=== PATIENT | female | born 1930 | race Caucasian/White ===

== ENCOUNTER 2019-04-21 10:55 | Observation (INO) | payer OTHER ==
[~2019-04-21] VITALS: Ht 157.5 cm; Wt 60.0 kg
[~2019-04-21 10:55] MED LIST: ALDACTONE25 MG PO; ASPIR 8181 MG PO; ASPIR-TRIN325 MG PO; ATORVASTATIN CA20 MG PO; BYSTOLIC5 MG PO; CLARITIN10 M2 PO; CLONIDINE HCL0.2 MG PO; CLOPIDOGREL75 MG PO; CRESTOR10 MG PO; GLUCOPHAGE500 MG PO; HEADACHE RELIE1 EAC4; ISOSORBIDE MONO20 MG PO; METFORMIN HCL500 MG PO; METOPROLOL TART25 MG PO; MULTIVITAMINS1 EAC7; NIFEDICAL XL30 MG PO; NITROSTAT0.4 MG SL; PHILLIPS'400 MG/5 M PO; RAMIPRIL5 MG PO; TEMAZEPAM15 MG PO; TESSALON PERLE100 MG PO; Z.0.AMLODIPINE BESY1 PO; Z.0.CLONIDINE HCL0.1 PO; Z.0.ISOSORBIDE MONO6 PO; Z.0.LOSARTAN-HCTZ1 E PO; Z.0.METOPROLOL TART2 PO; Z.0.PLAVIX75 MG PO; Z.0.RANEXA500 MG PO; Z.0.SIMVASTATIN40 MG PO; Z.0.ZOLPIDEM TARTRA1 PO
[2019-04-21] MEDS ORDERED: HYDRALAZINE HCL 20 MG/ML VIAL IV STA (11:21)
[2019-04-21 12:18] LABS: BASOPHILS % 0.3 % (0.0-1.0); EOSINOPHILS % 0.4 % (0.0-6.0); HEMATOCRIT 38.6 % (34.2-44.1); HEMOGLOBIN 12.7 g/dL (12.0-16.0); LYMPHOCYTES # (AUTO) 1.4 (1.0-3.2); LYMPHOCYTES % 18.1 % (18.0-39.1); MEAN CORPUSCULAR HEMOGLOBIN 31.4 pg (28-32); MEAN CORPUSCULAR HGB CONC 32.9 g/dL (31-35); MEAN CORPUSCULAR VOLUME 95.5 fL (81-99); MONOCYTES # (AUTO) 0.6 (0.2-0.8); MONOCYTES % 7.4 % (4.4-11.3); NEUTROPHILS # (AUTO) 5.6 (2.1-6.9); NEUTROPHILS % 73.3 % (38.7-80.0); PLATELET COUNT 212 x10e3/uL (140-360); RED BLOOD COUNT 4.04 x10e6/uL (3.6-5.1); RED CELL DISTRIBUTION WIDTH 12.8 % (11.7-14.4)
--- NOTE | 2019-04-21 12:28 | Diagnostic Imaging Report ---
EXAMINATION: CHEST SINGLE (PORTABLE) INDICATION: Shortness of breath COMPARISON: None FINDINGS: LINES/TUBES:EKG leads overlie the chest. LUNGS:The lungs are mildly hyperinflated. No focal consolidation or pulmonary edema. Subcentimeter right midlung to a granuloma. PLEURA:No pleural effusion or pneumothorax. MEDIASTINUM:The cardiomediastinal silhouette appears normal in size and shape. Atherosclerotic calcifications of the thoracic aorta. BONES/SOFT TISSUES:No acute osseous injury. ABDOMEN:No free air under the diaphragm. IMPRESSION: No focal pneumonia or pulmonary edema. Signed by: Jermaine Hill MD on 04/21/2019 12:25 PM
[2019-04-21 12:29] LABS: INR 0.88; PARTIAL THROMBOPLASTIN TIME 25.8 seconds (23.8-35.5); PROTHROMBIN TIME 12.4 seconds (11.9-14.5)
[2019-04-21 12:36] LABS: ALBUMIN 3.9 g/dL (3.5-5.0); ALBUMIN/GLOBULIN RATIO 1.3 (0.8-2.0); ANION GAP 13.3 mmol/L (8-16); CALCIUM 9.8 mg/dL (8.4-10.2); CREATININE, SERUM 1.38 mg/dL (0.57-1.11); POTASSIUM 4.3 mmol/L (3.5-5.1)
[2019-04-21 12:43] LABS: CREATINE KINASE MB 1.3 ng/mL (0-5.0)
[2019-04-21] MEDS ORDERED: HYDRALAZINE HCL 20 MG/ML VIAL ONE (14:38)
[2019-04-21 16:17] LABS: BILIRUBIN,URINE NEGATIVE (NEGATIVE); CLARITY,URINE SL CLOUDY (CLEAR); COLOR,URINE YELLOW (YELLOW); KETONES,URINE NEGATIVE (NEGATIVE); LEUKOCYTE ESTERASE ,URINE NEGATIVE (NEGATIVE); NITRITE,URINE NEGATIVE (NEGATIVE); PROTEIN,URINE DIPSTICK NEGATIVE (NEGATIVE); URINE UROBILINOGEN 0.2 mg/dL (0.2 - 1)
[2019-04-21 16:31] LABS: BACTERIA,URINE FEW /HPF; EPITHELIAL CELLS,URINE RARE /LPF
[2019-04-21] MEDS ORDERED: SODIUM CHLORIDE 0.9% 1000ML 1,000 ML IV SCH (16:48)
[2019-04-21] MEDS ORDERED: ONDANSETRON HCL INJ 2MG/ML 2ML 2 MG/ML VIAL IV PRN (17:00)
[2019-04-21] MEDS ORDERED: ASPIRIN 81 MG CHEW TAB PO ONE (17:00)
--- OUTSIDE RECORDS SUMMARY | 2019-04-21 17:26 | XMS REPORT ---
Author Author [facility] Address Unknown Phone Unavailable Care Team Providers Care Keg Washer Name Role Phone Mery QUINONEZ Unavailable Unavailable Problems This patient has no known problems. Allergies, Adverse Reactions, Alerts This patient has no known allergies or adverse reactions. Medications This patient has no known medications. Results Test Description Test Time Test Comments Text Results Atomic Results Result Comments CHEST SINGLE (PORTABLE) 2019-04-21 12:23:00 [place] [id number] Patient Name: LUIZ SUN MR #: [id number] : 1930 Age/Sex: 88/F Req #: [id number] Adm Physician: Ordered by: STEPHANIE LUCERO [employer] OPERATOR HELPER Report #: [id number] Location: ER Room/Bed: Procedure: [id number] DX/CHEST SINGLE (PORTABLE) Exam Date: 04/21/19 Exam Time: 1140 REPORT STATUS: Signed EXAMINATION: CHEST SINGLE (PORTABLE) JUAN CATION: Shortness of breath COMPARISON: None FINDINGS: LINES/TUBES:EKG leads overlie the chest. LUNGS:The lungs are mildly hyperinflated. No focal consolidation or pulmonary edema. Subcentimeter right midlung to a granuloma. PLEURA:No pleural effusion or pneumothorax. MEDIASTINUM:The cardiomediastinal silhouette appears normal in size and shape. Atherosclerotic calcifications of the thoracic aorta. BONES/SOFT TISSUES:No acute osseous injury. ABDOMEN:No free air under the diaphragm. IMPRESSION: No focal pneumonia or pulmonary edema. Signed by: Link Luz MD on 04/21/2019 12:25 PM Dictated By: LINK LUZ MD 1225 Transcribed By: MITA on 04/21/19 1225 COPY TO: STEPHANIE LUCERO NP
[2019-04-21] MEDS ORDERED: ACETAMINOPHEN 325 MG TAB PO PRN (18:30)
[2019-04-21 18:43] VITALS: BP 187/79
[2019-04-21] MEDS ORDERED: DEXTROSE 50% SYRINGE 50 ML IV PRN (19:00)
[2019-04-21] MEDS ORDERED: TRAZODONE HCL50 MG PO (19:50)
--- NOTE | 2019-04-21 19:55 | NUR ---
RECEIVED PT IN BED AOX3 RESPIRATIONS ARE EVEN AND UNLABORED DENIES CHEST PAIN .SKIN WARM AND DRY TO TOUCH .PHYSICAL ASSESSMENT DONE FAMILY AT THE BEDSIDE .CALL LIGHT WITH IN REACH CONTINUE TO MONITOR
[2019-04-21] MEDS ORDERED: CLONIDINE HCL0.1 MG PO (19:58)
[2019-04-21] MEDS ORDERED: CLONIDINE HCL0.2 MG (19:58)
[2019-04-21] MEDS ORDERED: CLONIDINE HCL 0.2 MG TAB PO PRN (20:45)
[2019-04-21] MEDS: INSULIN LISPRO 100 UNIT/1 ML 3ML VIAL SQ SCH (21:00)
[2019-04-21] MEDS ORDERED: ATORVASTATIN 20 MG TAB PO SCH (21:00)
[2019-04-21] MEDS: ISOSORBIDE MONONITRATE 30 MG TAB CR PO SCH (21:33)
[2019-04-21] MEDS: TRAZODONE HCL 50 MG TAB PO SCH (21:34)
[2019-04-21] MEDS: METOPROLOL TARTRATE 25 MG TAB PO SCH (21:34)
[2019-04-21] MEDS: TEMAZEPAM 15 MG CAP PO SCH (21:34)
[2019-04-21 21:41] LABS: CREATINE KINASE MB 1.7 ng/mL (0-5.0)
[2019-04-21] MEDS: CLONIDINE HCL 0.1 MG TAB PO SCH (21:46)
[2019-04-22] VITALS (10 sets, daily range): BP systolic 142–164; BP diastolic 60–68
[2019-04-22] MEDS ORDERED: HYDRALAZINE HCL 25 MG TAB PO PRN (00:15)
[2019-04-22 01:52] LABS: CREATINE KINASE 61 IU/L (29-168)
[2019-04-22 05:33] LABS: BASOPHILS % 0.6 % (0.0-1.0); EOSINOPHILS # (AUTO) 0.1 (0.0-0.4); HEMATOCRIT 34.5 % (34.2-44.1); HEMOGLOBIN 11.4 g/dL (12.0-16.0); LYMPHOCYTES # (AUTO) 1.9 (1.0-3.2); LYMPHOCYTES % 27.4 % (18.0-39.1); MEAN CORPUSCULAR HEMOGLOBIN 31.6 pg (28-32); MEAN CORPUSCULAR VOLUME 95.6 fL (81-99); MONOCYTES # (AUTO) 0.7 (0.2-0.8); MONOCYTES % 10.7 % (4.4-11.3); NEUTROPHILS # (AUTO) 4.1 (2.1-6.9); PLATELET COUNT 186 x10e3/uL (140-360); RED BLOOD COUNT 3.61 x10e6/uL (3.6-5.1)
[2019-04-22 05:50] LABS: ANION GAP 9.9 mmol/L (8-16); CREATININE, SERUM 1.17 mg/dL (0.57-1.11); POTASSIUM 3.9 mmol/L (3.5-5.1)
[2019-04-22] MEDS: RAMIPRIL 5 MG CAP PO SCH ×2 (06:00→09:00)
[2019-04-22] MEDS ORDERED: NIFEDIPINE CR 30 MG TAB PO SCH ×2 (06:00→09:00)
[2019-04-22 06:15] LABS: CREATINE KINASE MB 1.4 ng/mL (0-5.0)
--- NOTE | 2019-04-22 06:36 | Diagnostic Imaging Report ---
EXAM: CHEST SINGLE (PORTABLE), AP Portable DATE: 04/22/2019 7:00 AM INDICATION: Chest pain. COMPARISON: AP view of the chest April 21, 2019. FINDINGS: LINES/TUBES: None LUNGS: Bilateral hyperinflation. No consolidations or edema. PLEURA: No effusions or pneumothorax. HEART AND MEDIASTINUM: The cardiac silhouette is mildly enlarged. Calcifications of aortic arch again observed. BONES AND SOFT TISSUES: No acute findings. IMPRESSION: Cardiomegaly without acute decompensation. Signed by: Dr. Perry Ceballos M.D. on 04/22/2019 6:33 AM
--- NOTE | 2019-04-22 07:15 | NUR ---
PATIENT IN BED RESTING WITH NO RESPIRATORY DISTRESS. DENIED PAIN OR DISCOMFORT AT THIS TIME. TELEMETRY BOX [address] BED IN LOWER POSITION, CALL LIGHT AT REACH.
--- NOTE | 2019-04-22 07:22 | NUR ---
PT RESTING .DENIES CHEST PAIN .PT HAS HR GOING FROM48 Addendum: 04/22/19 at 0724 by Jose Harrison RN WRONG
--- NOTE | 2019-04-22 07:24 | NUR ---
PT RESTING PT HAS LOW HR GOING FROM 45-52 .DENIES CHEST PAIN .CALL LIGHTWITH IN REACH BEDSIDE REPORT GIVENTO THE ONCOMING NURSE
[2019-04-22] MEDS: INSULIN LISPRO 100 UNIT/1 ML 3ML VIAL SQ SCH ×4 (08:00→21:00)
[2019-04-22] MEDS ORDERED: METFORMIN HCL 500 MG TAB PO SCH (08:00)
[2019-04-22] MEDS: NIFEDIPINE CR 30 MG TAB PO SCH (09:00)
[2019-04-22] MEDS ORDERED: ISOSORBIDE MONONITRATE 20 MG TAB PO SCH (09:00)
[2019-04-22] MEDS ORDERED: CLOPIDOGREL BISULFATE 75 MG TAB PO SCH (09:00)
[2019-04-22] MEDS ORDERED: ASPIRIN 81 MG CHEW TAB PO SCH (09:00)
[2019-04-22] MEDS: METOPROLOL TARTRATE 25 MG TAB PO SCH ×3 (09:00→21:00)
[2019-04-22] MEDS ORDERED: RAMIPRIL 5 MG CAP PO SCH (09:00)
[2019-04-22] MEDS: CLONIDINE HCL 0.1 MG TAB PO SCH ×2 (09:21→17:54)
[2019-04-22] MEDS: MULTIVITAMINS/MINERALS TAB PO SCH (09:40)
[2019-04-22] MEDS: ISOSORBIDE MONONITRATE 30 MG TAB CR PO SCH ×2 (09:40→20:27)
--- NOTE | 2019-04-22 11:23 | NUR ---
SPOKE WITH MD REGARDING PROCEDURE TOMORROW. ORDER RECEIVED TO GIVE PLAVIX AND ASPIRIN TODAY AND HOLD FOR TOMORROW. PATIENT NOTIFIED OF PLAN OF CARE.
--- NOTE | 2019-04-22 15:00 | NUR ---
PATIENT AMBULATED IN THE ROOM WITH PHYSICAL THERAPY, NO COMPLAIN VOICED. BACK IN BED WITH CALL LIGHT AT REACH.
--- NOTE | 2019-04-22 15:36 | Consultation ---
DATE OF CONSULTATION: Cardiology Consultation CHIEF COMPLAINT: The patient is an 88-year-old with chest pain, shortness of breath. HISTORY OF PRESENT ILLNESS: The patient is an 88-year-old, who has been having worsening shortness of breath and exertion for the last week. The patient then experienced chest discomfort similar in nature to her previous angina and came to the emergency room at the [facility]. The patient was subsequently admitted for observation. The patient has had no nausea, no vomiting, no abdominal pain. PAST MEDICAL HISTORY: Significant for: 1. Coronary artery disease. 2. Previous intracoronary stent placement about 10 years ago. 3. Hypertension. 4. Hyperlipidemia. 5. Diabetes mellitus. MEDICATIONS: At home include: 1. Atorvastatin. 2. Clonidine. 3. Clopidogrel. 4. Isosorbide. 5. Metformin. 6. Metoprolol. 7. Nifedipine. 8. Ramipril. SOCIAL HISTORY: The patient does not drink and does not smoke. The patient lives independently. FAMILY HISTORY: There is a known family history of coronary artery disease. PHYSICAL EXAMINATION: GENERAL: The patient is an older female, in no obvious distress. VITAL SIGNS: Include a temperature of 96.6, pulse was 50, blood pressure 142/60. HEAD EARS, EYES, NOSE, AND THROAT: The patient's cranium was normocephalic and atraumatic. Extraocular muscles were intact. Sclerae were anicteric. Pupils were equal, round, reactive to light. There was no pallor or cyanosis of the oral mucosa. There was no erythema or edema of the throat. NECK: Supple. No jugular venous distention. CHEST: Demonstrated rhonchi bilaterally. CARDIAC: Demonstrated normal S1 and S2 with a short 2/6 systolic murmur. ABDOMEN: Demonstrated good bowel sounds. No tenderness and no masses. EXTREMITIES: No clubbing, no cyanosis, and no edema. NEUROLOGIC: The patient was alert and oriented x3. Cranial nerves II through XII are intact. Motor strength was +5/+5 in all limbs. DIAGNOSTIC DATA: The patient's EKG demonstrated sinus bradycardia with no acute changes. IMPRESSION: The patient is an 88-year-old with chest pain concerning for angina and elevated cardiac enzymes. The patient has had a previous intracoronary stent. I would recommend proceeding with a cardiac cath and possible coronary intervention. I have discussed my recommendations with the patient and she is in agreement to proceed. MD ANNA Li/REYMUNDO /[id number] cc: MD Krishna Garcia MD
--- NOTE | 2019-04-22 16:11 | History and Physical ---
The patient is placed on observation. Observation date is April 21, 2019. PRIMARY CARE PHYSICIAN: Krishna House MD. DELIVERY DRIVER ASSISTANT: Sergio Khan MD. CHIEF COMPLAINT: Chest pain. HISTORY OF PRESENT ILLNESS: The patient is an 88-year-old female with 3 angioplasty and 1 stent placement many years ago, came in with increasing chest pain. The patient has also had uncontrolled hypertension as well. She does have adrenal mass previously and on clonidine. The patient is not a surgical candidate per patient. She is otherwise stable at this time. She is comfortable. PAST MEDICAL HISTORY: Adrenal mass, uncontrolled hypertension, coronary artery disease with previous stent and angioplasty, history of CVA with some right-sided residual weakness, diabetes type 2, and dyslipidemia. SOCIAL HISTORY: The patient does not smoke or use alcohol. No regular drugs. ALLERGIES: NO KNOWN ALLERGIES. HOME MEDICATIONS: List reviewed. REVIEW OF SYSTEMS: As mentioned above. PHYSICAL EXAMINATION: VITAL SIGNS: Temperature is 98, blood pressure 151/67, pulse rate 52, and respirations 18. GENERAL: The patient is not in acute distress. She is awake. HEENT: Normocephalic and atraumatic. Pupils reactive. Anicteric. NECK: Supple grossly. PULMONARY: Clear. CARDIOVASCULAR: Bradycardia. ABDOMEN: Soft and unremarkable. EXTREMITIES: No cyanosis or edema. NEUROLOGIC: No focal deficit. LABORATORY DATA: CBC completely normal. Chemistry; sodium 138, potassium 3.9, chloride 106, bicarb 22, BUN 16, creatinine 1.1, and glucose 104. Troponin I is 0.071 and 0.22. IMAGING TEST: Chest x-ray, otherwise cardiomegaly without acute decompensation. IMPRESSION: Chest pain, possible unstable angina. PLAN: Resume home medication. Consultation with Dr. Sergio Khan, who already seen the patient. The patient is scheduled for cardiac catheterization. MD Tatyana GarciaT/MODL /[id number]
--- NOTE | 2019-04-22 19:46 | NUR ---
RECEIVED PT IN BED AOX3 .DENIES CHEST PAIN .FAMILY AT THE BEDSIDE .NPO AFTER MIDNIGHT FOR CARDIAC CATH .CALL LIGHT WITH IN REACH CONTINUE TO MONITOR
[2019-04-22] MEDS: TRAZODONE HCL 50 MG TAB PO SCH (20:26)
[2019-04-22] MEDS: ATORVASTATIN 40 MG TAB PO SCH (20:27)
[2019-04-22] MEDS: TEMAZEPAM 15 MG CAP PO SCH (20:28)
[2019-04-23] VITALS (8 sets, daily range): BP systolic 113–185; BP diastolic 56–86
[2019-04-23] MEDS ORDERED: INFLUENZA VIRUS VAC SPLIT INJ 0.5 ML SYR IM SCH (01:19)
--- NOTE | 2019-04-23 06:37 | NUR ---
PT IS NPO FOR CARDIAC KATELIN.DENIES PAIN .CALL LIGHT WITH IN REACH .BEDSIDE REPORT GIVEN TO THE ON COMING NURSE
[2019-04-23] MEDS: INSULIN LISPRO 100 UNIT/1 ML 3ML VIAL SQ SCH ×4 (07:30→20:05)
--- NOTE | 2019-04-23 07:35 | NUR ---
PATIENT IN BED RESTING WITH HEAD OF BED ELEVATED. DENIED PAIN AT THIS TIME. REMAIN NPO FOR A PROCEDURE. BED IN LOWER POSITION, CALL LIGHT AT REACH.
[2019-04-23] MEDS: RAMIPRIL 5 MG CAP PO SCH ×2 (09:00→17:00)
[2019-04-23] MEDS: METOPROLOL TARTRATE 25 MG TAB PO SCH (09:00)
[2019-04-23] MEDS: CLONIDINE HCL 0.1 MG TAB PO SCH ×3 (09:00→20:01)
[2019-04-23] MEDS: NIFEDIPINE CR 30 MG TAB PO SCH (09:53)
--- NOTE | 2019-04-23 09:53 | NUR ---
PATIENT NPO FOR A PROCEDURE. NOTED WITH THE BLOOD PRESSURE OF 185/86 AND HR OF 69. MD NOTIFIED. ORDER RECEIVED TO GIVE HER SCHEDULED PROCARDIA. ORDER IMPLEMENTED. WILL CLOSELY MONITOR.
[2019-04-23] MEDS ORDERED: LIDOCAINE HCL 2% LOCAL 20 ML VIAL ONE (11:21)
[2019-04-23] MEDS ORDERED: FENTANYL CITRATE/PF 100MCG/2 ML INJ ONE (11:21)
[2019-04-23] MEDS ORDERED: HEPARIN SOD (PORCINE) 1000 UNIT/ML 30ML ONE (11:21)
[2019-04-23] MEDS ORDERED: MIDAZOLAM HCL 2 MG/2 ML VIAL ONE ×2 (11:21→12:25)
[2019-04-23] MEDS ORDERED: IOPAMIDOL 370 MG/ML 200 ML INFUS..BTL INJ ONE ×2 (11:22→12:22)
[2019-04-23] MEDS ORDERED: SODIUM CHLORIDE 0.9% 1000ML 1,000 ML ONE (11:22)
[2019-04-23] MEDS ORDERED: HEPARIN SOD/SOD CHLORIDE 2,000 ML ONE (11:22)
--- NOTE | 2019-04-23 11:37 | NUR ---
PATIENT OFF UNIT TO TOP FORMER.
[2019-04-23] MEDS ORDERED: LABETALOL HCL 20 ML ONE (12:01)
[2019-04-23] MEDS ORDERED: BIVALRIUDIN 250 MG/VIAL VIAL IV ONE (12:11)
[2019-04-23] MEDS ORDERED: SODIUM CHLORIDE 0.9% 50ML 50 ML ONE ×2 (12:12→12:33)
[2019-04-23] MEDS ORDERED: ADENOSINE 3MG/1ML 30ML VIAL ONE (12:32)
--- NOTE | 2019-04-23 13:12 | NUR ---
PATIENT BACK TO UNIT FROM RN WELLNESS. HAD HEART CATH , DRESSING DRY AND INTACT TO RIGHT GROIN, NO HEMATOMA NOTED. PATIENT TO KEEP RIGHT LEG STRAIGHT UNTIL 1600, AWARE OF PLAN OF CARE. DENIED PAIN AT THIS TIME. V/S 97.2-67-18- 143/64 AND 94% ON RA.
[2019-04-23] MEDS: ISOSORBIDE MONONITRATE 30 MG TAB CR PO SCH ×2 (13:34→20:02)
[2019-04-23] MEDS: MULTIVITAMINS/MINERALS TAB PO SCH (13:34)
--- NOTE | 2019-04-23 14:39 | NUR ---
PATIENT REMAINS IN BED WITH LEG STRAIGHT. PEDAL PULSE PRESENT, BED IN LOWER POSITION, CALL LIGHT AT REACH.
--- NOTE | 2019-04-23 17:05 | NUR ---
PATIENT OFF BED REST. SITTING UP IN BED EATING DINNER, NO COMPLAIN VOICED. BED IN LOWER POSITION, CALL LIGHT AT REACH.
--- NOTE | 2019-04-23 19:09 | Operative Report ---
DATE OF PROCEDURE: SURGEON: Sergio Khan MD PROCEDURES: 1. Pressure wire and fractional flow reserve measurement of left anterior descending artery. 2. Left heart catheterization. PREOPERATIVE DIAGNOSIS: Coronary artery disease. POSTOPERATIVE DIAGNOSIS: Coronary artery disease. COMPLICATIONS: Complications were none. ANESTHESIA: Versed, fentanyl, and lidocaine. TECHNIQUE: The right groin was draped and prepped in the usual fashion. The area was anesthetized with lidocaine. Standard Seldinger technique was used to place a 6-Singaporean sheath into the right femoral artery without difficulty. A JL4 catheter was used to selectively engage the left coronary artery. A 3DRC catheter was used to selectively engage the right coronary artery. A pigtail catheter was used to perform a left ventriculogram. Attention was then turned to the area in the proximal left anterior descending artery. The patient was bolused with Angiomax and started on an Angiomax drip. A JL4 guiding catheter was used to position a pressure wire across the proximal left anterior descending artery and question was found to have a fractional flow reserve of 0.94, and a Mynx device was used for closure. There were no complications, RESULTS: As follows: 1. There is a normal left main trunk. 2. There is a large left anterior descending artery, which gave rise to a medium-sized diagonal branch. There was a 50% stenosis in the very proximal left anterior descending artery with a fractional flow reserve measurement of 0.94. 3. There was a medium-sized AV circumflex artery, which gave rise to a large dominant bifurcating obtuse marginal branch. There was a patent stent in the obtuse marginal branch. 4. There was a large dominant right coronary artery with minimal disease. There was some hypokinesis of the apex with overall mild left ventricular dysfunction and an ejection fraction of 45% to 50%. CONCLUSION: There is a patent stent in the obtuse marginal branch of the circumflex artery with some moderate nonobstructive coronary artery disease. There is no high-grade stenosis. Sergio Khan MD H/MODL /[id number] cc: MD Ronnie Meng MD
[2019-04-23] MEDS: TRAZODONE HCL 50 MG TAB PO SCH (20:01)
[2019-04-23] MEDS: ATORVASTATIN 40 MG TAB PO SCH (20:02)
[2019-04-24] VITALS: BP 116/56
[2019-04-24 04:00] VITALS: BP 151/63
--- NOTE | 2019-04-24 07:05 | NUR ---
Received patient lying in bed. Respiration even and unlabored without SOB. Call light in reach.
[2019-04-24 07:10] LABS: BASOPHILS % 0.3 % (0.0-1.0); EOSINOPHILS # (AUTO) 0.1 (0.0-0.4); EOSINOPHILS % 0.6 % (0.0-6.0); HEMATOCRIT 34.3 % (34.2-44.1); HEMOGLOBIN 11.2 g/dL (12.0-16.0); LYMPHOCYTES # (AUTO) 2.5 (1.0-3.2); LYMPHOCYTES % 26.9 % (18.0-39.1); MEAN CORPUSCULAR HEMOGLOBIN 31.2 pg (28-32); MEAN CORPUSCULAR HGB CONC 32.7 g/dL (31-35); MEAN CORPUSCULAR VOLUME 95.5 fL (81-99); MONOCYTES # (AUTO) 0.9 (0.2-0.8); MONOCYTES % 9.5 % (4.4-11.3); NEUTROPHILS # (AUTO) 5.8 (2.1-6.9); NEUTROPHILS % 62.4 % (38.7-80.0); PLATELET COUNT 198 x10e3/uL (140-360); RED BLOOD COUNT 3.59 x10e6/uL (3.6-5.1); RED CELL DISTRIBUTION WIDTH 13.2 % (11.7-14.4)
[2019-04-24 07:26] LABS: ALBUMIN 3.3 g/dL (3.5-5.0); ALBUMIN/GLOBULIN RATIO 1.3 (0.8-2.0); ANION GAP 11.6 mmol/L (8-16); CALCIUM 8.9 mg/dL (8.4-10.2); CREATININE, SERUM 1.07 mg/dL (0.57-1.11); POTASSIUM 3.6 mmol/L (3.5-5.1)
[2019-04-24] MEDS: INSULIN LISPRO 100 UNIT/1 ML 3ML VIAL SQ SCH ×2 (07:30→11:30)
[2019-04-24 07:47] VITALS: BP 154/70
[2019-04-24 07:48] VITALS: BP 154/70
[2019-04-24] MEDS: CLONIDINE HCL 0.1 MG TAB PO SCH (08:29)
[2019-04-24] MEDS: MULTIVITAMINS/MINERALS TAB PO SCH (08:30)
[2019-04-24] MEDS: ISOSORBIDE MONONITRATE 30 MG TAB CR PO SCH (08:30)
[2019-04-24] MEDS: NIFEDIPINE CR 30 MG TAB PO SCH (08:31)
[2019-04-24] MEDS: RAMIPRIL 5 MG CAP PO SCH (08:37)
[2019-04-24] MEDS ORDERED: ASPIRIN 81 MG ENTERIC COATED PO SCH (09:00)
[2019-04-24] MEDS ORDERED: ONDANSETRON HCL 4 MG ORAL DISINTEGRATING TAB PO PRN (10:15)
[2019-04-24 11:46] VITALS: BP 120/60
--- NOTE | 2019-04-24 12:38 | NUR ---
IV to left AC discontinued, catheter tip intact, no bleeding noted. Patient is discharge to home as ordered. Transported via wheelchair to private vehicle. All belongings are taken by patient's daughter. Respiration even and unlabored without SOB.
--- NOTE | 2019-04-24 15:16 | Discharge Summary ---
FORMULA MAKER: Sergio Khan MD. PRIMARY CARE PHYSICIAN: Krishna House MD. FINAL DIAGNOSES: 1. Hypertensive urgency. 2. Chest pain. 3. Cough. HOSPITAL COURSE: The patient is an 88-year-old female with coronary artery disease. The patient came in with chest pain. She is status post left heart catheterization. Ejection fraction is 45% to 50%. The normal left main trunk. There is a large left anterior descending artery, which gives rise to a medium-sized diagonal branch. There is a 50% stenosis in the very proximal left anterior descending artery with a fractional flow reserve measuring of 0.94. There is also a medium-sized AV circumflex artery. It is given rise to a large dominant bifurcation obtuse marginal branch. There was also a patent stent in the obtuse marginal branch as well. There was a large dominant right coronary artery with minimal disease. There was some hypokinesis of the apex with overall mild left ventricular dysfunction and ejection fraction of approximately 45% to 50%. The patient is otherwise stable. Medication adjustment was made. Because of her fatigueness, her metoprolol is discontinued and ramipril discontinued because of cough. Metformin discontinued because of the creatinine. She will go home with change in clonidine 0.1 mg t.i.d. and Benicar 40 mg daily. She will resume her other usual home medication as indicated. The patient is otherwise stable. Discharged home. Follow up with Dr. Krishna House in approximately [address] Sergio Khan in approximately 1 week. Ronnie Brewster MD JT/MODL /[id number]
== END 2019-04-24 12:40 | disposition home or self-care (01) ==
LOC: ER 10:55 → ERHOLD 16:48 → MED/SURG3 18:45
PROVIDERS: ADMIT Internal Medicine; ATTEND Internal Medicine
DX: I16.0 Hypertensive urgency (principal); R07.9 Chest pain, unspecified; I10 Essential (primary) hypertension; E78.00 Pure hypercholesterolemia, unspecified; Z95.5 Presence of coronary angioplasty implant and graft; E27.8 Other specified disorders of adrenal gland; E78.5 Hyperlipidemia, unspecified; I25.10 Atherosclerotic heart disease of native coronary artery without angina pectoris; I69.351 Hemiplegia and hemiparesis following cerebral infarction affecting right dominant side; E11.9 Type 2 diabetes mellitus without complications; R05 Cough; Z79.82 Long term (current) use of aspirin
CPT/HCPCS: 36415 ×4; 71045 ×2; 80048; 80053 ×2; 81001; 82550 ×2; 82553 ×2; 82948 ×4; 84484 ×2; 85025 ×3; 85610; 85730; 93005 ×2; 93306; 93458; 93571; 93880; 97139; 97161; 99285; C1753; C1760; C1769; C1887; G0378 ×4; J0153; J0360; J0583; J1644; J2001; J2250; J3010; J3490; J7030 ×2; Q9967